=== PATIENT | female | born 1945 | race Caucasian/White ===

== ENCOUNTER 2017-02-15 06:08 | Emergency (ER) | payer OTHER ==
[~2017-02-15] VITALS: Ht 160 cm; Wt 97.0 kg
[~2017-02-15 06:08] MED LIST: ALBU8.5H3 INH; AMLO-147 PO; ASPI-664 PO; ATOR80TA75 PO; AZIT250T94 PO; BENA40TA41 PO; CIPR500T4 PO; HYDR-906 PO; HYDR25TA6 PO; IBUP-1542 PO; MTF1000T PO; ONDA4TAB14 PO
[2017-02-15 06:10] VITALS: Ht 160 cm; Wt 97.0 kg
[2017-02-15] MEDS ORDERED: IPRATROPIUM (NEB) 0.5 MG/2.5 ML AMP INH STA (06:45)
[2017-02-15] MEDS ORDERED: ALBUTEROL 0.5% (NEB) 2.5 MG/0.5 ML AMP INH STA (06:45)
[2017-02-15] MEDS ORDERED: predniSONE 20 MG TAB PO STA (06:45)
[2017-02-15] MEDS ORDERED: ACETAMINOPHEN 500 MG TAB PO STA (06:45)
--- NOTE | 2017-02-15 07:42 | ERD ---
ER Documentation Chief Complaint Chief Complaint cough x 1 week, headache on and off x 4 days HPI This is a 71-year-old female who presents the emergency department today for cough for the past week, intermittent headaches for the past 4 days of sore throat and shortness of breath. She has taken NyQuil with no improvement in symptoms. States she has a history of high blood pressure, diabetes and asthma and used her inhaler at 3 this morning but it is not helping her. Eyes any fevers or chills. ROS All systems reviewed and are negative except as per history of present illness. Medications Home Meds Active Scripts Prednisone* (Prednisone*) 20 Mg Tab, 40 MG PO DAILY for 4 Days, TAB Prov:ALEYDA VAZQUEZ PA-C 02/15/17 Albuterol Sulfate* (Ventolin HFA*) 18 Gm Hfa.aer.ad, 2 PUFF INHALATION Q4H, #1 INHALER Prov:ALEYDA VAZQUEZ PA-C 02/15/17 Beclomethasone Dipropionate (QNASL) 8.7 Gm Hfa.aer.ad, 2 SPRAYS NASAL DAILY, #1 BOTTLE PER NOSTRIL Prov:ALEYDA VAZQUEZ PA-C 02/15/17 Naproxen* (Naprosyn*) 500 Mg Tablet, 500 MG PO BID Y for PAIN AND/OR INFLAMMATION, #30 TAB Prov:ALEYDA VAZQUEZ PA-C 02/15/17 Azithromycin* (Zithromax*) 250 Mg Tablet, 250 MG PO .HonorioPACK DIRECTED, #6 TAB TAKE 500 MG (2 TABS) THE FIRST DAY THEN 250 MG (1 TAB) DAYS 2-5 Prov:ALEYDA VAZQUEZ PA-C 02/15/17 Cetirizine Hcl* (Zyrtec*) 10 Mg Capsule, 10 MG PO DAILY, #14 TAB.CHEW Prov:ALEYDA VAZQUEZ PA-C 02/15/17 Ondansetron (Ondansetron Odt) 4 Mg Tab.rapdis, 4 MG PO Q6H Y for NAUSEA AND/OR VOMITING, #10 TAB Prov:TENZIN CLEMENTS 07/23/16 Hydrocodone/Acetaminophen ([place] 5-325 Tablet) 1 Each Tablet, 1 TAB PO Q6H Y for PAIN, #10 TAB Prov:TENZIN CLEMENTS 07/23/16 Ciprofloxacin Hcl* (Ciprofloxacin Hcl*) 500 Mg Tablet, 500 MG PO BID for 7 Days , TAB Prov:MICHAELTENZIN ODELL 07/23/16 Azithromycin* (Zithromax*) 250 Mg Tablet, 250 MG PO .ZPACK DIRECTED, #6 TAB TAKE 500 MG (2 TABS) THE FIRST DAY THEN 250 MG (1 TAB) DAYS 2-5 Prov:ABIGAIL BLACKMON MD 02/06/16 Azithromycin* (Zithromax*) 250 Mg Tablet, 250 MG PO .ZPACK DIRECTED, #6 TAB TAKE 500 MG (2 TABS) THE FIRST DAY THEN 250 MG (1 TAB) DAYS 2-5 Prov:ABIGAIL BLACKMON MD 02/06/16 Albuterol Sulfate* (Proair HFA*) 8.5 Gm Hfa.aer.ad, 2 PUFF INH Q4 Y for SHORTNESS OF BREATH, #1 INHALER Prov:FRANCHESCA CHAPPELL MD 08/09/15 Reported Medications Ibuprofen* (Ibuprofen*) 600 Mg Tablet, 600 MG PO Q8 Y for PAIN, TAB 07/23/16 Metformin* (Glucophage*) 1,000 Mg Tablet, 1000 MG PO BID, #60 TAB 08/06/15 Hydrochlorothiazide* (Hydrochlorothiazide*) 25 Mg Tab, 25 MG PO DAILY, #30 TAB 08/06/15 Benazepril Hcl* (Benazepril Hcl*) 40 Mg Tablet, 40 MG PO DAILY, #30 TAB 08/06/15 Atorvastatin* (Atorvastatin*) 80 Mg Tablet, 80 MG PO QHS, #30 TAB 16 Aspirin* (Aspirin* EC) 81 Mg Tablet.dr, 81 MG PO DAILY, TAB 08/06/15 Amlodipine Besylate* (Amlodipine Besylate*) 10 Mg Tablet, 10 MG PO DAILY, #30 TAB 08/06/15 Allergies Allergies: Coded Allergies: No Known Allergy (Unverified , 07/23/16) PMhx/Soc History of Surgery: Yes (Hysterectomy with left oophorectomry) Anesthesia Reaction: Yes Hx Neurological Disorder: No Hx Respiratory Disorders: Yes (Asthma) Hx Cardiac Disorders: Yes (HTN) Hx Psychiatric Problems: No Hx Miscellaneous Medical Probl: Yes (HLD, DM) Hx Alcohol Use: No Hx Substance Use: No Hx Tobacco Use: No Smoking Status: Never smoker Physical Exam Vitals Vital Signs Date Time Temp Pulse Resp B/P Pulse Ox O2 Delivery O2 Flow Rate FiO2 02/15/17 07:10 79 20 96 21 02/15/17 06:10 97.7 71 20 128/67 97 Physical Exam Const: NAD Head: Atraumatic Eyes: Normal Conjunctiva PERRLA. EOM intact. ENT: Ears TMs normal. Nose no drainage. Throat erythema no exudate no vesicles Neck: Full range of motion..~ No meningismus. Resp: Expiratory wheezing bilaterally in all lung lyle. Cardio: Regular rate and rhythm, no murmurs Abd: Soft, non tender, non distended. Normal bowel sounds Skin: No petechiae or rashes Back: No midline or flank tenderness Ext: No cyanosis, or edema Neur: Awake and alert cranial nerves II through XII intact. No gait ataxia. Psych: Normal Mood and Affect Results 24 hrs Current Medications Medications (Trade) Dose Ordered Sig/[place] Route PRN Reason Start Time Stop Time Status Last Admin Dose Admin Albuterol (Proventil 0.5% (Neb)) 5 mg ONCE STAT INH 02/15/17 06:45 02/15/17 06:48 DC 02/15/17 07:08 Ipratropium [place] (Atrovent 0.02% (Neb)) 1 mg ONCE STAT INH 02/15/17 06:45 02/15/17 06:48 DC 02/15/17 07:08 Prednisone (Prednisone) 60 mg ONCE STAT PO 02/15/17 06:45 02/15/17 06:48 DC 02/15/17 06:54 Acetaminophen (Tylenol Tab) 500 mg ONCE STAT PO 02/15/17 06:45 02/15/17 06:48 DC 02/15/17 06:54 RUN DATE: 02/15/17 [facility] PAGE 1 RUN TIME: [id number] [place] [address] Segundo Blackwood M.D. Regional Engagement Consultant MARCIAL#: [id number] Name: CATALINA GONZALES Age/Sex: 71/F Attend Dr: SCOTT VARMA MD Acct: [id number] MR# : [id number] : 1945 Location: [facility] Admit: 02/15/17 Specimen: [id number] Status: Complete Florencio: 02/15/17 Rcvd: 02/15 Source: [facility] Sp Descrip: Procedure Result Microbiology INFLUENZA A & B BY EIA Final INFLU A&B BY EIA INFLUENZA A NEGATIVE (Ref Range Neg) INFLUENZA B NEGATIVE (Ref Range Neg) ................................................................................ ............ Flags: Critical Hi = *H Critical Lo = *L Microbiology Abnormal = * Abnormal Hi = H Abnormal Lo = L Blood Bank Abnormal = * Susceptability Flags: S = Sensitive R = Resistant I = Intermediate END OF REPORT DIAGNOSTIC IMAGING REPORT Patient: CATALIAN GONZALES : 1945 Age: 71 Sex: F MR #: [id number] DOS: 02/15/17 0645 Ordering MD: ALEYDA VAZQUEZ PA-C Location: [facility] Room/Bed: PROCEDURE: XR Chest. CLINICAL INDICATION: Cough, asthma, shortness of breath. TECHNIQUE: Single frontal view of the chest was obtained. COMPARISON: 08/06/2015. FINDINGS: The cardiomediastinal silhouette is normal in size. There are aortic calcifications. No focal consolidation is seen. No pleural effusion is seen. No definite pneumothorax. No acute osseous abnormality. IMPRESSION: No radiographic evidence of an acute cardiopulmonary process. RPTAT: EE Alfonso Alcantara Physician Date Time Electronically viewed and signed by Alfonso Alcantara Physician on 02/15/2017 07:55 PH/ CC: ALEYDA VAZQUEZ PA-C DIAGNOSTIC IMAGING REPORT Patient: CATALINA GONZALES : 1945 Age: 71 Sex: F MR #: [id number] DOS: 02/15/17 0000 Ordering MD: ALEYDA VAZQUEZ PA-C Location: E Room/Bed: PROCEDURE: CT Brain without. CLINICAL INDICATION: Headache TECHNIQUE: A CT of the brain was performed utilizing axial sections from the skull base through the vertex without contrast. The scan was reviewed in soft tissue brain and high frequency resolution bone algorithm windows. Images were reviewed on a high-resolution PACS workstation. The exam CTDI = 43.48 mGy, and the DLP = 720.23 mGy-cm. One or more of the following dose reduction techniques were used: Automated exposure control, adjustment of the mA and / or kV according to patient size, or use of iterative reconstruction technique. DICOM images are available. COMPARISON: None available FINDINGS: There is mild prominence of the lateral ventricles and cerebral sulci, consistent with diffuse cerebral atrophy. There is no intracranial hemorrhage, midline shift, or mass effect. No abnormal extra-axial fluid collections are identified. There is hypoattenuation of the periventricular white matter. The yao-white differentiation is well preserved. The basal cisterns are patent. The posterior fossa is unremarkable. The visualized portions of the orbits are unremarkable. The paranasal sinuses and mastoid air cells are clear. No calvarial fracture or abnormality are identified. The soft tissues are unremarkable. IMPRESSION: 1. No acute intracranial abnormality. 2. Age related senescent changes with mild diffuse cerebral atrophy. 3. Patchy periventricular hypoattenuation, nonspecific finding, most commonly associated with microvascular ischemic changes. RPTAT: HH .Tammy Muniz MD, MD Date Time Electronically viewed and signed by .Tammy Muniz MD, on 02/15/2017 08 :16 .G/ CC: ALEYDA VAZQUEZ PA-C Procedures/MDM This is a 71-year-old female who presents the emergency department today with multiple complaints. Patient did have diffuse expiratory wheezing on physical exam however given patients multiple complaints and complaints of shortness of breath I also obtain a chest x-ray as well as an influenza swab. Patient was given a 1 hour continuous breathing treatment and also prednisone here in the emergency department Influenza A and B is negative Chest x-ray shows no radiographic evidence of acute cardiopulmonary process. There is no focal consolidation, pneumothorax, pleural effusion. Patient was complaining of intermittent headache for the past 4 days. Patient denies any history of headaches and given her age past medical history of hypertension I did obtain a head CT scan Head CT noncontrast shows no acute intracranial abnormality. There is age- related changes with mild diffuse cerebral atrophy. There is no intracranial hemorrhage, midline shift or mass-effect. There are patchy periventricular hypoattenuation is okay with this CT scan is nonspecific finding most commonly associated with microvascular ischemic changes Patient did report improvements with breathing treatment and Tylenol for her headache. Pat ient symptoms at this time is consistent with URI likely asthma exacerbation and headache. Low supsicion for acute hemorrhage, mass, abscess, meningitis. Low suspicion for new, PE, abscess, pleural effusion, pneumothorax. Patient will begin a prescription for azithromycin given the duration of her symptoms as well as a refill on her inhaler, short course of prednisone, Zyrtec and Naprosyn for her headache At this time the patient is stable for discharge and outpatient management. Patient should follow up with their PCP in the next 1-2 days. They may return to the emergency department sooner for any persistent or worsening of symptoms. Patient and daughter understood and agreed with the plan. Departure Diagnosis: Primary Impression: Asthma exacerbation Asthma severity: unspecified severity Asthma persistence: unspecified Qualified Code: J45.901 - Exacerbation of asthma, unspecified asthma severity, unspecified whether persistent Additional Impression: Headache Headache type: unspecified Headache chronicity pattern: episodic headache Intractability: not intractable Qualified Code: R51 - Nonintractable episodic headache, unspecified headache type Condition: ALEYDA Partida PA-C Feb 15, 2017 07:42
--- NOTE | 2017-02-15 07:55 | RADRPT ---
PROCEDURE: XR Chest. CLINICAL INDICATION: Cough, asthma, shortness of breath. TECHNIQUE: Single frontal view of the chest was obtained. COMPARISON: 08/06/2015. FINDINGS: The cardiomediastinal silhouette is normal in size. There are aortic calcifications. No focal consolidation is seen. No pleural effusion is seen. No definite pneumothorax. No acute osseous abnormality. IMPRESSION: No radiographic evidence of an acute cardiopulmonary process. RPTAT: EE Alfonso Alcantara Physician Date Time Electronically viewed and signed by Alfonso Alcantara Physician on 02/15/2017 07:55 PH/
--- NOTE | 2017-02-15 08:17 | RADRPT ---
PROCEDURE: CT Brain without. CLINICAL INDICATION: Headache TECHNIQUE: A CT of the brain was performed utilizing axial sections from the skull base through th e vertex without contrast. The scan was reviewed in soft tissue brain and high frequency resolution bone algorithm windows. Images were reviewed on a high-resolution PACS workstation. The exam CTDI = 43.48 mGy, and the DLP = 720.23 mGy-cm. One or more of the following dose reduction techniques we re used: Automated exposure control, adjustment of the mA and / or kV according to patient size, or use of iterative reconstruction technique. DICOM images are available. COMPARISON: None available FINDINGS: There is mild prominence of the lateral ventricles and cerebral sulci, consistent with diffuse cereb ral atrophy. There is no intracranial hemorrhage, midline shift, or mass effect. No abnormal extra- axial fluid collections are identified. There is hypoattenuation of the periventricular white matte r. The yao-white differentiation is well preserved. The basal cisterns are patent. The posterior fossa is unremarkable. The visualized portions of the orbits are unremarkable. The paranasal sinuses and mastoid air cells are clear. No calvarial fracture or abnormality are identified. The soft tissues are unremarkable . IMPRESSION: 1. No acute intracranial abnormality. 2. Age related senescent changes with mild diffuse cerebral atrophy. 3. Patchy periventricular hypoattenuation, nonspecific finding, most commonly associated with micro vascular ischemic changes. RPTAT: HH .Tammy Muniz MD, Date Time Electronically viewed and signed by .Tammy Muniz MD, on 02/15/2017 08:16 .G/
[2017-02-15] MEDS ORDERED: CETI10CA PO (08:39)
[2017-02-15] MEDS ORDERED: NAPR-260 PO (08:40)
[2017-02-15] MEDS ORDERED: AZIT250T94 PO (08:40)
[2017-02-15] MEDS ORDERED: BECL8.7H NASAL (08:42)
[2017-02-15] MEDS ORDERED: ALBU18HF INHALATION (08:42)
[2017-02-15] MEDS ORDERED: PRED20TA PO (08:44)
== END 2017-02-15 09:10 | disposition home or self-care (01) ==
LOC: FTE 06:08
DX: J45.901 Unspecified asthma with (acute) exacerbation (principal); R51 Headache; I10 Essential (primary) hypertension; E11.9 Type 2 diabetes mellitus without complications; Z79.82 Long term (current) use of aspirin; Z79.84 Long term (current) use of oral hypoglycemic drugs
CPT/HCPCS: 70450; 71010; 87400; 94644; J7512; Z7502; Z7610

== ENCOUNTER 2017-08-20 20:51 | Emergency (ER) | END 2017-08-21 03:50 | disposition home or self-care (01) ==